=== PATIENT | female | born 1965 | race Caucasian/White ===

== ENCOUNTER → 2020-07-26 | Outpatient (CLI) | payer OTHER | END | disposition home or self-care (01) | LOC: LAB SHORT 08:10 → PLD 08:10 | DX: R87.810 Cervical high risk human papillomavirus (HPV) DNA test positive (principal) | CPT/HCPCS: 88305 ==

== ENCOUNTER 2021-08-30 12:24 | Emergency (ER) | payer OTHER ==
[~2021-08-30] VITALS: Ht 152.4 cm; Wt 56.7 kg
[2021-08-30] MEDS ORDERED: Cyclobenzaprine5 MG PO (14:39)
== END 2021-08-30 14:46 | disposition home or self-care (01) ==
LOC: ER 12:24
DX: M54.50 Low back pain, unspecified (principal); Y04.0XXA Assault by unarmed brawl or fight, initial encounter
CPT/HCPCS: 72100; 96372; 99283-25; J1885